=== PATIENT | female | born 1990 | race Caucasian/White ===

== ENCOUNTER 2017-04-12 17:46 | Emergency (ER) | payer MEDICAID ==
[~2017-04-12] VITALS: Ht 152.4 cm; Wt 54.4 kg
[2017-04-12 19:13] VITALS: BP 105/72
--- NOTE | 2017-04-12 20:07 | NUR ---
PT TAKEN TO BED 5
--- NOTE | 2017-04-12 20:09 | NUR ---
26 Y/O F W/C/O MIDDLE ABD PAIN, BODY ACHES, FEVER AND NAUSEA X 2 DAYS. DENIES ANY VOMITING OR DIARRHEA. ER MD MADE AWARE.
--- NOTE | 2017-04-12 20:23 | NUR ---
Dr. Venegas evaluating patient at bedside.
[2017-04-12 20:57] VITALS: BP 112/73
--- NOTE | 2017-04-12 20:57 | NUR ---
DPatient discharged with v/s stable. Written and verbal after care instructions given and explained. Patient alert, oriented and verbalized understanding of instructions. Ambulatory with steady gait. All questions addressed prior to discharge. ID band removed. Patient advised to follow up with PMD IN 2 DAYS OR RETURN TO ER IF CONDITION WORSENS. Rx of PENICILLIJ AND ZOFRAN given. Patient educated on indication of medication including possible reaction and side effects. Opportunity to ask questions provided and answered.
== END 2017-04-12 20:57 | disposition home or self-care (01) ==
LOC: MED 17:46
DX: J03.90 Acute tonsillitis, unspecified (principal); R10.33 Periumbilical pain; K52.9 Noninfective gastroenteritis and colitis, unspecified
CPT/HCPCS: 81002; 81025; 99283

== ENCOUNTER 2018-01-06 15:36 | Emergency (ER) | payer MEDICAID, OTHER ==
[~2018-01-06] VITALS: Ht 152.4 cm; Wt 52.2 kg
[2018-01-06 18:38] VITALS: BP 119/68
== END 2018-01-06 18:37 | disposition home or self-care (01) ==
LOC: MED 15:36
DX: F41.0 Panic disorder [episodic paroxysmal anxiety] (principal); N39.0 Urinary tract infection, site not specified
CPT/HCPCS: 81002; 81025; 99283

== ENCOUNTER 2018-10-09 21:41 | Emergency (ER) | payer OTHER ==
[~2018-10-09] VITALS: Ht 152.4 cm; Wt 57.2 kg
[2018-10-09 21:56] VITALS: BP 131/87
[2018-10-09] MEDS ORDERED: KETOROLAC 30 MG/ML VIAL IVP ONE (22:10)
[2018-10-09] MEDS ORDERED: ONDANSETRON 4 MG/2 ML VIAL IVP ONE (22:10)
[2018-10-09] MEDS ORDERED: MORPHINE SULFATE 4 MG/ML SYR IVP ONE (22:10)
[2018-10-09] MEDS ORDERED: NACL 0.9% 1,000 ML IV SCH (22:10)
[2018-10-09 22:32] LABS: BASOPHILS # (AUTO) 0.1 K/uL (0.00-0.22); BASOPHILS % (AUTO) 0.6 % (0.0-2.0); EOSINOPHILS # (AUTO) 0.2 K/uL (0-0.4); EOSINOPHILS % (AUTO) 2.2 % (0.0-4.0); HEMATOCRIT 39.3 % (36-48); HEMOGLOBIN 12.9 g/dL (12.0-16.0); LYMPHOCYTES # (AUTO) 2.7 K/uL (2.5-16.5); LYMPHOCYTES % (AUTO) 24.3 % (20.5-51.1); MEAN CORPUSCULAR HEMOGLOBIN 27 pg (27-31); MEAN CORPUSCULAR HGB CONC 33 g/dL (33-37); MEAN CORPUSCULAR VOLUME 81.5 fL (80-94); MONOCYTES # (AUTO) 0.8 K/uL (0.8-1.0); MONOCYTES % (AUTO) 6.9 % (1.7-9.3); NEUTROPHILS # (AUTO) 7.3 K/uL (1.8-7.7); PLATELET COUNT (AUTO) 321 K/uL (140-450); RED BLOOD CELL COUNT(AUTO) 4.82 MIL/uL (4.20-5.40); RED CELL DISTRIBUTION WIDTH 14.3 % (11.6-13.7)
[2018-10-09 22:42] LABS: APPEARANCE,URINE CLEAR (CLEAR); BILIRUBIN,URINE NEGATIVE (NEGATIVE); BLOOD, URINE NEGATIVE (NEGATIVE); COLOR,URINE YELLOW (YELLOW); LEUKOCYTE ESTERASE ,URINE NEGATIVE (NEGATIVE); NITRITE, URINE NEGATIVE (NEGATIVE); UGLUCOSE NEGATIVE (NEGATIVE)
[2018-10-09 22:45] LABS: ANION GAP 10.6 (8-16); CARBON DIOXIDE 27.8 mmol/L (21-32); CREATININE 0.7 mg/dL (0.6-1.3); POTASSIUM 3.4 mmol/L (3.5-5.1)
[2018-10-09 22:50] LABS: ALBUMIN 4.1 g/dL (3.4-5.0); TOTAL BILIRUBIN 0.4 mg/dL (0.0-1.0)
[2018-10-10 01:17] VITALS: BP 106/77
== END 2018-10-10 01:17 | disposition home or self-care (01) ==
LOC: MED 21:41
DX: K59.00 Constipation, unspecified (principal); R11.2 Nausea with vomiting, unspecified
CPT/HCPCS: 36415; 74177; 76705; 80053; 81003; 81025; 82150; 83690; 84703; 85025; 96361; 96374; 96375; 99284; J1885; J2270; J2405; J7030; Q0092; Q9967